=== PATIENT | female | born 1950 | race Caucasian/White ===

== ENCOUNTER → 2016-10-13 | Outpatient (CLI) | payer OTHER, BC ==
[~2016-10-13] MED LIST: ACET-176; ANSHCCR/; ASPI81TA28 PO; BUPRTAB51 PO; HYZ/10015 PO; LEVO100T7 PO; LEVOPOW36 PO; LORA10TA5 PO; NITR0.4S UT; POTA-327 PO; POTA-74 PO; PRLSR20 PO
[2016-10-13 13:25] LABS: POTASSIUM 3.5 mmol/L (3.5-5.1)
[2016-10-13 13:40] LABS: THYROID STIMULATING HORMONE 0.345 uIu/ml (0.300-4.500)
== END | disposition home or self-care (01) ==
LOC: C.LABMFLN 08:00
PROVIDERS: ATTEND Family Medicine
DX: E03.9 Hypothyroidism, unspecified (principal); E87.6 Hypokalemia

== ENCOUNTER → 2017-03-01 | Outpatient (CLI) | payer OTHER, BC ==
[2017-03-01 18:27] LABS: BLOOD UREA NITROGEN 17 mg/dl (7-18); BUN/CREATININE RATIO 23.6 (10-20); CARBON DIOXIDE 32 mmol/L (21-32); CHLORIDE 107 mmol/L (98-107); GLUCOSE 94 mg/dl (70-99); MAGNESIUM 2.1 mg/dl (1.8-2.4); POTASSIUM 3.6 mmol/L (3.5-5.1); SODIUM 144 mmol/L (136-145)
[2017-03-01 18:38] LABS: ALT/SGPT 24 U/L (12-78); AST/SGOT 19 U/L (15-37); CHOLESTEROL 233 mg/dl (0-200); CHOLESTEROL/HDL RATIO 5.7; HDL CHOLESTEROL 41 mg/dl; LDL CHOLESTEROL CALCULATED 152 mg/dl; THYROID STIMULATING HORMONE 0.231 uIu/ml (0.300-4.500); TRIGLYCERIDES 202 mg/dl (0-150); VERY LOW DENSITY LIPOPROT CALC 40 mg/dl
[2017-03-01 18:45] LABS: BASO % 0.5 %; BASO ABS # 0.03 K/uL (0-0.2); COMPLETE YES; EOS % 1.4 %; HEMATOCRIT 41.3 % (37-47); IG% 0.3 %; LYMPH % 28.1 %; LYMPH ABS # 1.84 K/uL (1.2-3.4); MEAN CELL VOLUME 84.3 fL (80-100); MEAN CORPUSCULAR HEMOGLOBIN 28.2 pg (25-34); MEAN CORPUSCULAR HGB CONC 33.4 g/dl (32-36); MEAN PLATELET VOLUME 10.4 fL (7.4-10.4); MONO % 8.6 %; NEUT % 61.1 %; PLATELET COUNT 262 K/uL (130-400); WHITE BLOOD COUNT 6.54 K/uL (4.8-10.8)
== END | disposition home or self-care (01) ==
LOC: C.LABMFLN 11:52
PROVIDERS: ATTEND Family Medicine
DX: I10 Essential (primary) hypertension (principal); E78.00 Pure hypercholesterolemia, unspecified; E03.9 Hypothyroidism, unspecified; G25.81 Restless legs syndrome

== ENCOUNTER 2017-04-03 11:57 | Emergency (ER) | payer OTHER, BC ==
[~2017-04-03] VITALS: Ht 160 cm; Wt 86.0 kg
[~2017-04-03 11:57] MED LIST changes: -LEVO100T7 PO; -POTA-74 PO
[2017-04-03 12:06] VITALS: TEMP 37.3; Ht 160 cm; Wt 86.0 kg
[2017-04-03] MEDS ORDERED: KETOROLAC TROMETHAMINE 30 MG/ML VIAL IV STA (12:40)
[2017-04-03] MEDS ORDERED: POTA-74 PO (13:07)
[2017-04-03] MEDS ORDERED: LEVO100T7 PO (13:07)
--- NOTE | 2017-04-03 13:28 | DIAGNOSTIC IMAGING REPORT ---
LUMBAR SPINE 5 VIEWS CLINICAL HISTORY: Fall with low back pain. FINDINGS: 5 views of the lumbar spine are obtained. No prior studies are available for comparison at the time of dictation. The skeletal structures are osteopenic. There is no radiographic evidence of fracture or malalignment. Vertebral body height and alignment are maintained throughout the lumbar spine. Small anterior osteophytes are seen throughout. The transverse and spinous processes appear intact. There is no evidence of spondylolysis on the oblique views. Facet arthropathy is seen in the lower lumbar region. Mild to moderate disc space narrowing is seen at L5-S1. The remaining disc spaces appear preserved. Degenerative endplate sclerosis is seen at L1-L2 and L5-S1. The visualized bony pelvis appears intact. Sclerotic degenerative change is noted at the sacroiliac joints. There is atherosclerotic calcification of the abdominal aorta. A nonobstructed bowel gas pattern is noted. IMPRESSION: 1. No acute bony abnormality is seen involving the lumbosacral spine. 2. Osteopenia and mild spondylotic change as above. Dictated: 04/03/2017 1:00 PM Transcribed: 04/03/2017 1:28 PM [email or web address] Electronically signed by: Randy Denney M.D. 04/03/2017 1:42 PM Dictated Date/Time: 04/03/2017 1:00 PM
--- NOTE | 2017-04-03 13:36 | EMERGENCY ROOM VISIT NOTE ---
ED Visit Note First contact with patient: 12:17 I have personally seen and evaluated the patient with the physician shop assistant. I agree with the diagnostic/management decisions and have personally been involved in these decisions and agree with the diagnosis.
[2017-04-03 13:56] VITALS: BP 128/71; PULSE 75; O2SAT 94
--- NOTE | 2017-04-12 17:30 | EMERGENCY ROOM VISIT NOTE ---
ED Visit Note First contact with patient: 12:17 CHIEF COMPLAINT: Low back pain HISTORY OF PRESENT ILLNESS: This 66-year-old white female patient complains of pain in the low back which began right after falling and landing on her back. She was attempting to sit at a picnic table and lost her balance while sitting. She fell off from a bench height and landed flat on her back. She denies any loss of consciousness. She denies any head pain. She does not believe she struck her head. She denies any neck pain. She arrives by [facility] ambulance. She was unable to ambulate after falling, secondary to pain. It is constant and worse with movement of the torso. There is no arm or leg numbness or weakness. There has been no vomiting or abdominal pain. He has a history of previous lumbar laminectomy 4 years ago as concerned that she did something to it. No radiating pain. Her accompanies her today. REVIEW OF SYSTEMS: No significant prior back problems. No dizziness, chest pain, or faintness before the fall. No injuries to the head or extremeties. PMH: Significant for hypertension, back pain, hypothyroidism Previous surgeries: Significant for lumbar laminectomy. Current medications: Reviewed and filed in patient's chart Allergies: Lisinopril, metoprolol, prednisone, milk Family history: Noncontributory. SOCIAL HISTORY: Patient lives at home. . No tobacco use. PHYSICAL EXAM: Vital Signs: Reviewed Nurse's notes and filed in chart. MENTAL STATUS: Alert and cooperative. Laying on a bed. Skin:Warm and dry with good turgor. No rashes or lesions. No ecchymosis or erythema. The patient is not diaphoretic. No abrasions. Surgical scar present in her lumbar spine. NECK: Supple, non-tender. Full range of motion of the neck. HEART: Regular rate and rhythm without murmurs, ectopy, gallops, or rubs. LUNGS: Clear to auscultation and breath sounds equal, no wheezes, rales, or rhonchi. Musculoskeletal: There is tenderness in the paraspinous muscles in the lumbar area. No tenderness over the spinous processes of the lumbar vertebrae. No ecchymoses seen. Mild discomfort with palpation over the SI joints bilaterally. No pain with palpation into the buttocks. No pain with palpation over the thoracic spine or cervical spine. Full range of motion of the neck. Intact motor function to the upper and lower extremities. Data: EMERGENCY DEPARTMENT COURSE: X-rays of the lumbar spine were read by radiology. . No acute bony abnormality is seen involving the lumbosacral spine. Osteopenia and mild spondylotic change are present. DIAGNOSIS: Lumbar back contusion DISCHARGE INSTRUCTIONS & TREATMENT: Patient was educated regarding today's findings. Conservative care measures were discussed. IV was established. She was given Toradol 30 mg IV with improvement in her pain. It was 1/10 at discharge. Rest for 3 days. Apply ice intermittently 3 days, and then use moist heat. Tylenol and Motrin every 6 hours as needed for discomfort. Gentle stretching daily. Return to the ED for any acute worsening of symptoms or loss of bowel or bladder control. See Dr. Alexis, her surgeon, in 3 to 4 days if she is not improved. He was reassured that I do not suspect fracture, subluxation, nerve root impingement, or cauda equina. Patient was seen in conjunction with Dr. Lockett, who also evaluated the patient and concurred with today's diagnosis and treatment plan. Current/Historical Medications Scheduled Aspirin (Aspirin Ec), 81 MG PO DAILY Hctz/Losartan (Hyzaar 25MG/100MG), 1 TAB PO QAM Levothyroxine Sodium (Levothyroxine Sodium), 1 TAB PO DAILYBB Loratadine (Claritin), 10 MG PO HS Nitroglycerin (Nitrostat), 0.4 MG UT PRN Omeprazole (Prilosec), 20 MG PO DAILY Potassium Chloride (Potassium Chloride Er), PO BID Scheduled PRN Acetaminophen (Apap Extra Strength), 2 TABS for Pain Allergies Coded Allergies: Milk (Verified Allergy, Unknown, unknown, 04/03/17) Lisinopril (Verified Adverse Reaction, Mild, cough, 04/03/17) Metoprolol (Verified Adverse Reaction, Mild, cough, 04/03/17) Prednisone (Verified Adverse Reaction, Unknown, depression, 04/03/17) Vital Signs Date Time Temp Pulse Resp B/P (MAP) Pulse Ox O2 Delivery O2 Flow Rate FiO2 04/03/17 13:56 75 20 128/71 94 04/03/17 12:58 83 20 135/79 95 Room Air 04/03/17 12:06 37.3 81 18 149/80 99 Room Air Medications Administered Medications (Trade) Dose Ordered Sig/Beckie Route Start Time Stop Time Status Last Admin Dose Admin Ketorolac Tromethamine (Toradol Inj) 30 mg NOW STAT IV 04/03/17 12:40 04/03/17 12:43 DC 04/03/17 13:36 30 MG Departure Information Impression Primary Impression: Contusion of back Dispostion Home / Self-Care Condition GOOD Forms HOME CARE DOCUMENTATION FORM, MOTRIN USE, TYLENOL USE, IMPORTANT VISIT INFORMATION Patient Instructions My [facility] Additional Instructions Ice intermittently 3 days, then use moist heat Gentle stretching daily Tylenol and Motrin every 6 hours as needed for discomfort Avoid any heavy lifting until symptoms fully resolved Follow-up with Dr. Alexis if symptoms are persisting into Tuesday, and not improving Return to the ED for any acute changes or inability to void
== END 2017-04-03 13:59 | disposition home or self-care (01) ==
LOC: EDBD 11:57 → C.EDB 11:58
DX: S30.0XXA Contusion of lower back and pelvis, initial encounter (principal); W08.XXXA Fall from other furniture, initial encounter; I10 Essential (primary) hypertension; E03.9 Hypothyroidism, unspecified; M85.88 Other specified disorders of bone density and structure, other site; Z12.82 Encounter for screening for malignant neoplasm of nervous system

== ENCOUNTER → 2017-09-27 | Outpatient (CLI) | payer OTHER, BC ==
[~2017-09-27] MED LIST changes: -ANSHCCR/; -BUPRTAB51 PO; +LEVO100T7 PO; -LEVOPOW36 PO; -LORA10TA5 PO; +LORA10TA6 PO; -POTA-327 PO; +POTA-74 PO
== END | disposition home or self-care (01) ==
LOC: C.LABMFLN 15:12
PROVIDERS: ATTEND Family Medicine
DX: E03.9 Hypothyroidism, unspecified (principal)

== ENCOUNTER → 2018-04-06 | Outpatient (CLI) | payer OTHER, BC ==
[2018-04-06 18:11] LABS: ALBUMIN 3.7 gm/dl (3.4-5.0); ALKALINE PHOSPHATASE 106 U/L (45-117); ALT/SGPT 23 U/L (12-78); AST/SGOT 18 U/L (15-37); BLOOD UREA NITROGEN 19 mg/dl (7-18); CALCIUM 8.8 mg/dl (8.5-10.1); CARBON DIOXIDE 29 mmol/L (21-32); CHOLESTEROL 252 mg/dl (0-200); CREATININE 0.83 mg/dl (0.60-1.20); GLUCOSE 107 mg/dl (70-99); LDL CHOLESTEROL CALCULATED 154 mg/dl; POTASSIUM 3.6 mmol/L (3.5-5.1); SODIUM 141 mmol/L (136-145); TOTAL PROTEIN 7.1 gm/dl (6.4-8.2)
== END | disposition home or self-care (01) ==
LOC: C.LABMFLN 15:29
PROVIDERS: ATTEND Family Medicine
DX: E78.00 Pure hypercholesterolemia, unspecified (principal); E03.9 Hypothyroidism, unspecified; I25.10 Atherosclerotic heart disease of native coronary artery without angina pectoris

== ENCOUNTER 2020-05-30 17:23 | Inpatient (IN) ==
[2020-05-30] MEDS ORDERED: SODIUM CHLORIDE 0.9% 1000ML 1,000 ML IV ONE ×2 (18:01→20:22)
--- NOTE | 2020-05-30 18:09 | Emergency Department Note ---
Impression & Plan Weakness, Fever, Acute dehydration, Acute kidney injury ED Provider Note NAME: PREMA SEAMAN AGE: 69 SEX: F : 1950 ARRIVES VIA: Walk-In INFORMANT: Patient, ED PROVIDER(S): Baron Bonds DO CHIEF COMPLAINT: Cough HPI: The patient is a 69-year-old female who presented to the emergency department for an evaluation of cough. The patient's been having problems with malaise cough and fever over the last 8 to 9 days. She states her symptoms are intermittent. She states her symptoms initially were evaluated by her primary care physician. She had a Covid swab which was negative. She was seen again by her primary care physician recently and had a chest x-ray for ongoing symptoms. This was reportedly negative. The patient describes generalized weakness as well as changes in her taste. She also denies having any headache. She denies having any abdominal pain or chest pain. She states he has no significant diffi culty breathing but does notice a cough with exertion. She has no lower extremity swelling or pain. She does not remember any tick borne illness in the past or recent tick bites or rashes. Her had similar symptoms initially but has since gotten better. She denies having any unilateral weakness but does complain of generalized weakness. She is not recently taken any medication for fever. She was noted to have low blood pressure by her primary care physician and was referred to the emergency department for further evaluation. ROS: See above HPI for pertinent positives & negatives. A total of 10 systems reviewed and were otherwise negative. PAST MEDICAL HISTORY: See Below PAST SURGICAL HISTORY: See Below FAMILY HISTORY: See Below SOCIAL HISTORY: See Below HOME MEDICATIONS: See Below ALLERGIES: See Below VITALS: See Below PHYSICAL EXAMINATION: GENERAL: The patient is awake and alert. She is somewhat listless appearing but does not appear to be uncomfortable. EYES: The conjunctivae are clear. The pupils are round and reactive. EARS, NOSE, MOUTH AND THROAT: The nose is without any evidence of any deformity. Mucous membranes are moist. NECK: The neck is nontender and supple. RESPIRATORY: Normal respiratory effort is noted there is no evidence of wheezing rhonchi or rales CARDIOVASCULAR: Regular rate and rhythm noted there no murmurs rubs or gallops normal S1 normal S2. GASTROINTESTINAL: The abdomen is soft. Abdomen is nontender. MUSCULOSKELETAL/EXTREMITIES: There is no evidence of gross deformity full range of motion is noted in the hips and shoulders. SKIN: There is no obvious evidence of any rash. There are no petechiae, pallor or cyanosis noted. NEUROLOGIC: Patient is awake alert and oriented x3 strength is symmetric patell ar reflexes are 2+ bilaterally MEDICAL DECISION MAKING: The patient is a 69-year-old female who presented to the emergency department for an evaluation of generalized weakness and fever. The patient was seen by her primary care physician then referred to the emergency department. He was concerned that she may have COVID-19. She was tested previously for COVID-19 and it was negative. The patient was treated with IV fluids in the emergency department. She was reevaluated multiple times. Her blood pressure did improve with this modality. She was found to have elevated white blood cell count as well as signs of elevation in her creatinine. This could be secondary to dehydration. CT did not reveal any acute process. She refused chest x-ray in the emergency department but 1 done earlier was reviewed. I discussed the patient's laboratory and radiographic studies with her. I also discussed her case with the on-call [facility] hospitalist. They have agreed to evaluate the patient in the emergency department for further management and disposition. Triage Nursing notes reviewed. Prior medical records reviewed Vital Signs: reviewed and remarkable for initial hypotension Differential diagnosis: Infection, dehydration, metabolic abnormality, hypo/hyperglycemia, electrolyte disturbance, anemia, hypoxia, cardiac sources, intracerebral event, toxicologic, neurologic, as well as other pathologies. ER treatment provided: See below Diagnostics interpreted by me: ECG: EKG was obtained in the emergency department. My interpretation is normal sinus rhythm at 83 bpm. There is no ectopy. Low lateral ST depressions were noted. Poor R wave progression was also noted. This was compared to a tracing from May 122014. No significant changes were noted. Cardiac Monitoring: An order was placed for continuous cardiac monitoring. The monitor shows a rate of 85 bpm with sinus rhythm. Laboratory studies: As stated above and show below. Imaging studies: See below, the patient refused chest x-ray in the emergency department. I was able to obtain the report from the chest x-ray that was done today at [facility]. The impression is stable radiographic appearance of the chest without focal parenchymal consolidation. Consultation(s): 3160: I discussed this case with Dr. Ashraf. Past Med/Surg History Medical History Angina pectoris Arteriosclerosis of coronary artery Atopic dermatitis Benign essential hypertension Contact with and (suspected) exposure to other viral communicable diseases Contusion of back Cough GERD without esophagitis Hypercholesterolemia Hypothyroidism Inflamed seborrheic keratosis Left-sided tinnitus Lung nodule Medicare annual wellness visit, subsequent Otalgia, left ear Restless leg syndrome Seborrheic dermatitis Tinnitus, bilateral TMJ tenderness, left Trigeminal neuralgia Vertigo Wheezing Surgical History H/O foot surgery History of cardiac cath History of colonoscopy History of coronary artery stent placement History of hysterectomy History of laminectomy History of salpingo-oophorectomy Family History Daughter Depression Hypertension Polycystic ovarian syndrome Heart murmur Other Adopted Social History Smoking Status: Never smoker Second Hand Exposure: No; Hx Alcohol Use: Yes Alcohol type: wine Alcohol Intake Frequency Comment: 1 drink a week Hx Substance Use: No Preferred Language: Azeri Visual Impairment: No Limitations Hearing Ability: Normal marital status: Current Living Situation: Spouse current occupational status: retired Feels Safe at Home: Yes Childhood Exposure to Second-Hand Smoke: Yes caffeine: Yes Dental Care, Regularly: Yes Physical Activity Frequency: 3-4 Times per Week Physical Activity Frequency Comment: walking Seatbelt Use: always Sunscreen Use: Yes Allergies Allergies Allergy/AdvReac Type Severity Reaction Status Date / Time milk Allergy Unknown unknown Verified 05/30/20 15:51 lisinopril AdvReac Mild cough Verified 05/30/20 15:51 metoprolol AdvReac Mild cough Verified 05/30/20 15:51 prednisone AdvReac Unknown depression Verified 05/30/20 15:51 Home Meds Home Medications Medication Instructions Recorded Confirmed aspirin 81 mg tablet 81 mg PO DAILY tab 03/19/19 05/30/20 carbamazepine 200 mg tablet 200 mg PO BID tab 05/20/20 05/30/20 Previous Rx's Medication Instructions Recorded acetaminophen 325 mg tablet 650 mg PO Q4H PRN #90 tab 07/17/19 isosorbide mononitrate 30 mg 30 mg PO DAILY #90 tab 07/17/19 tablet,extended release 24 hr levothyroxine 100 mcg tablet 100 mcg PO DAILY #90 tab 07/17/19 losartan 100 1 tab PO DAILY #90 tab 07/17/19 mg-hydrochlorothiazide 25 mg tablet nitroglycerin 0.4 mg sublingual 0.4 mg SL Q5M #25 tab 07/17/19 tablet omeprazole 20 mg capsule,delayed 20 mg PO DAILY #90 cap 07/17/19 release potassium chloride 10 mEq 10 meq PO TID #270 tab 07/17/19 tablet,extended release rosuvastatin 5 mg tablet 5 mg PO DAILY #90 tab 07/17/19 hydrocortisone 2.5 % topical cream 1 appln TOP BID PRN #30 gm 10/02/19 ezetimibe 10 mg tablet 10 mg PO HS #30 tab 05/20/20 Results & Data (ED) Vital Signs Vital Signs - 24 hr 05/30/20 17:37 05/30/20 18:01 05/30/20 18:31 Pulse Rate 87 Pulse Rate [Right] Pulse Rhythm [Right] Pulse Strength [Right] Respiratory Rate 18 Respiratory Effort / Characteristics Non-Labored Spontaneous Short of Breath Respiratory Depth Normal Blood Pressure 94/63 L Blood Pressure [Right Arm] Blood Pressure Mean 73 Blood Pressure Mean [Right Arm] Blood Pressure Position Sitting Blood Pressure Position [Right Arm] Pulse Oximetry 98 94 94 Oxygen Delivery Method Room Air Room Air Room Air Sepsis Recent Fever Within 48 Hours Yes Sepsis New/Unexplained Change in Mental Status No Sepsis Action Taken by Nursing No Action Required 05/30/20 19:55 05/30/20 21:29 Pulse Rate Pulse Rate [Right] 77 84 Pulse Rhythm [Right] Regular Regular Pulse Strength [Right] Normal Normal Respiratory Rate 18 16 Respiratory Effort / Characteristics Non-Labored Spontaneous Non-Labored Spontaneous Respiratory Depth Normal Normal Blood Pressure Blood Pressure [Right Arm] 95/59 L 122/72 Blood Pressure Mean Blood Pressure Mean [Right Arm] 71 88 Blood Pressure Position Blood Pressure Position [Right Arm] Lying Pulse Oximetry 93 98 Oxygen Delivery Method Room Air Room Air Sepsis Recent Fever Within 48 Hours Sepsis New/Unexplained Change in Mental Status Sepsis Action Taken by Prison Medications Current Medication List: was personally reviewed by me Laboratory Data Attestation: I reviewed the patient's lab results. Result diagrams: 05/30/20 18:42 05/30/20 18:42 Lab Results 05/30/20 05/30/20 05/30/20 Range/Units 18:42 18:42 18:42 WBC 8.12 (4.8-10.8) K/uL RBC 4.42 (4.2-5.4) M/uL Hgb 12.6 (12.0-16.0) g/dL Hct 37.1 (37-47) % MCV 83.9 (80-100) fL MCH 28.5 (25-34) pg MCHC 34.0 (32-36) g/dL RDW Std Deviation 41.9 (36.4-46.3) fL RDW Coeff of Charles 13.7 (11.5-14.5) % Plt Count 222 (130-400) K/uL MPV 9.7 (7.4-10.4) fL Immature Gran % (Auto) 0.7 % Neut % (Auto) 79.2 % Lymph % (Auto) 11.1 % Peach % (Auto) 6.3 % Eos % (Auto) 2.3 % Baso % (Auto) 0.4 % Neut # (Auto) 6.43 (1.4-6.5) K/uL Lymph # (Auto) 0.90 L (1.2-3.4) K/uL Peach # (Auto) 0.51 (0.11-0.59) K/uL Eos # (Auto) 0.19 (0-0.5) K/uL Baso # (Auto) 0.03 (0-0.2) K/uL Immature Gran # (Auto) 0.06 H (0.00-0.02) K/uL Toxic Vacuolation 1+ PT 11.2 (9.0-12.0) Seconds INR 1.1 (0.9-1.1) APTT 27.2 (21.0-31.0) Seconds PTT Ratio 1.0 Sodium (136-145) mmol/L Potassium (3.5-5.1) mmol/L Chloride (98-107) mmol/L Carbon Dioxide (21-32) mmol/L Anion Gap (3-11) BUN (7-18) mg/dl Creatinine (0.6-1.2) mg/dl Est Cr Clr Drug Dosing Est GFR ( Amer) Est GFR (Non-Af Amer) BUN/Creatinine Ratio (10-20) Glucose (70-99) mg/dl Lactate (0.4-2.0) mmol/L Calcium (8.5-10.1) mg/dl Magnesium (1.8-2.4) mg/dl Total Bilirubin (0.2-1) mg/dl AST (15-37) U/L ALT (12-78) U/L Alkaline Phosphatase (45-117) U/L Troponin I (0-0.045) ng/ml Total Protein (6.4-8.2) gm/dl Albumin (3.4-5.0) gm/dl Globulin (2.5-4.0) gm/dl Albumin/Globulin Ratio (0.9-2) Procalcitonin (0-0.5) ng/ml Anaplasma Smear See Comment Lyme Disease IgG Ab Negative (Negative) Lyme Disease IgM Ab Negative (Negative) COVID-19 Eval Order COVID-19 PCR (Negative) 05/30/20 05/30/20 05/30/20 Range/Units 18:42 18:42 18:42 WBC (4.8-10.8) K/uL RBC (4.2-5.4) M/uL Hgb (12.0-16.0) g/dL Hct (37-47) % MCV (80-100) fL MCH (25-34) pg MCHC (32-36) g/dL RDW Std Deviation (36.4-46.3) fL RDW Coeff of Charles (11.5-14.5) % Plt Count (130-400) K/uL MPV (7.4-10.4) fL Immature Gran % (Auto) % Neut % (Auto) % Lymph % (Auto) % Peach % (Auto) % Eos % (Auto) % Baso % (Auto) % Neut # (Auto) (1.4-6.5) K/uL Lymph # (Auto) (1.2-3.4) K/uL Peach # (Auto) (0.11-0.59) K/uL Eos # (Auto) (0-0.5) K/uL Baso # (Auto) (0-0.2) K/uL Immature Gran # (Auto) (0.00-0.02) K/uL Toxic Vacuolation PT (9.0-12.0) Seconds INR (0.9-1.1) APTT (21.0-31.0) Seconds PTT Ratio Sodium 134 L (136-145) mmol/L Potassium 3.8 (3.5-5.1) mmol/L Chloride 103 (98-107) mmol/L Carbon Dioxide 22 (21-32) mmol/L Anion Gap 9.0 (3-11) BUN 31 H (7-18) mg/dl Creatinine 2.10 H (0.6-1.2) mg/dl Est Cr Clr Drug Dosing Not Reportable Est GFR ( Amer) 27.1 Est GFR (Non-Af Amer) 23.4 BUN/Creatinine Ratio 14.5 (10-20) Glucose 106 H (70-99) mg/dl Lactate 0.8 (0.4-2.0) mmol/L Calcium 8.8 (8.5-10.1) mg/dl Magnesium 2.7 H (1.8-2.4) mg/dl Total Bilirubin 0.5 (0.2-1) mg/dl AST 83 H (15-37) U/L ALT 145 H (12-78) U/L Alkaline Phosphatase 303 H (45-117) U/L Troponin I < 0.015 (0-0.045) ng/ml Total Protein 7.5 (6.4-8.2) gm/dl Albumin 2.9 L (3.4-5.0) gm/dl Globulin 4.6 H (2.5-4.0) gm/dl Albumin/Globulin Ratio 0.6 L (0.9-2) Procalcitonin 0.66 H (0-0.5) ng/ml Anaplasma Smear Lyme Disease IgG Ab (Negative) Lyme Disease IgM Ab (Negative) COVID-19 Eval Order COVID-19 PCR (Negative) 05/30/20 05/30/20 Range/Units 18:55 18:55 WBC (4.8-10.8) K/uL RBC (4.2-5.4) M/uL Hgb (12.0-16.0) g/dL Hct (37-47) % MCV (80-100) fL MCH (25-34) pg MCHC (32-36) g/dL RDW Std Deviation (36.4-46.3) fL RDW Coeff of Charles (11.5-14.5) % Plt Count (130-400) K/uL MPV (7.4-10.4) fL Immature Gran % (Auto) % Neut % (Auto) % Lymph % (Auto) % Peach % (Auto) % Eos % (Auto) % Baso % (Auto) % Neut # (Auto) (1.4-6.5) K/uL Lymph # (Auto) (1.2-3.4) K/uL Peach # (Auto) (0.11-0.59) K/uL Eos # (Auto) (0-0.5) K/uL Baso # (Auto) (0-0.2) K/uL Immature Gran # (Auto) (0.00-0.02) K/uL Toxic Vacuolation PT (9.0-12.0) Seconds INR (0.9-1.1) APTT (21.0-31.0) Seconds PTT Ratio Sodium (136-145) mmol/L Potassium (3.5-5.1) mmol/L Chloride (98-107) mmol/L Carbon Dioxide (21-32) mmol/L Anion Gap (3-11) BUN (7-18) mg/dl Creatinine (0.6-1.2) mg/dl Est Cr Clr Drug Dosing Est GFR ( Amer) Est GFR (Non-Af Amer) BUN/Creatinine Ratio (10-20) Glucose (70-99) mg/dl Lactate (0.4-2.0) mmol/L Calcium (8.5-10.1) mg/dl Magnesium (1.8-2.4) mg/dl Total Bilirubin (0.2-1) mg/dl AST (15-37) U/L ALT (12-78) U/L Alkaline Phosphatase (45-117) U/L Troponin I (0-0.045) ng/ml Total Protein (6.4-8.2) gm/dl Albumin (3.4-5.0) gm/dl Globulin (2.5-4.0) gm/dl Albumin/Globulin Ratio (0.9-2) Procalcitonin (0-0.5) ng/ml Anaplasma Smear Lyme Disease IgG Ab (Negative) Lyme Disease IgM Ab (Negative) COVID-19 Eval Order Covid19 Done at [facility] COVID-19 PCR NEGATIVE (Negative) Administered Medications Discontinued Medications Sodium Chloride (Nss 1000ml) 1,000 mls @ 999 mls/hr IV .Q1H1M ONE Stop: 05/30/20 19:01 Last Infusion: 05/30/20 20:07 Dose: 0 mls/hr Documented by: [id number] Admin: 05/30/20 19:05 Dose: 999 mls/hr Documented by: [id number] Sodium Chloride (Nss 1000ml) 1,000 mls @ 999 mls/hr IV .Q1H1M ONE Stop: 05/30/20 21:22 Last Infusion: 05/30/20 21:56 Dose: 0 mls/hr Documented by: [id number] Admin: 05/30/20 20:53 Dose: 999 mls/hr Documented by: [id number] Imaging Data Radiologist's Impression: Patient: PREMA SEAMAN Admit Date: 05/30/20 MR#: [id number] Address1: [address] [place] [address] Acct ID:[id number] Address2: Date: 1950 [facility] Zip: [place] [address] Age: 69 Location: ED Sex: F Room/Bed: Att Phy: Diagnosis: DEHYDRATED Shy Phy: Randy Amin MD Service Date: 05/30/20 [facility] Phy: Randy Amin MD Interpreting Phy: Randy Denney MD Admit Phy: Ordering Phy: Baron Bonds DO cc: ~ CT SCAN OF THE ABDOMEN AND PELVIS WITHOUT IV CONTRAST CLINICAL HISTORY: Renal insufficiency. COMPARISON STUDY: Radiographs of lumbar spine dated 04/03/2017. TECHNIQUE: CT scan of the abdomen and pelvis is performed from the lung bases to the proximal femora. Images are reviewed in the axial, sagittal, and coronal planes. IV contrast was not administered for this examination. A dose lowering technique was utilized adhering to the principles of ALARA. The examination is degraded by motion artifact. CT DOSE: 652.33 mGy.cm FINDINGS: Lung bases: The heart is normal in size noting a small pericardial effusion. The coronary arteries are densely calcified. There is diminished attenuation of the cardiac blood pool as compared to the myocardium suggesting anemia. There are trace pleural effusions with dependent atelectasis. No airspace consolidation is seen typical for pneumonia. Liver: The unenhanced liver is normal in size, contour, and attenuation. There is no intrahepatic biliary ductal dilatation. Coarse calcifications are noted in the right lobe. Gallbladder: Unremarkable. Spleen: Normal in size and attenuation. Pancreas: Unremarkable. Adrenal glands: Unremarkable. Kidneys: The unenhanced kidneys are normal in size and without hydronephrosis. There are no renal calculi identified. There is no evidence of contour deforming renal mass lesion. Abdominal vasculature: The abdominal aorta is normal in course and caliber noting moderate to advanced atherosclerotic calcification. Bowel: There is advanced colonic diverticulosis without CT evidence of acute diverticulitis. No bowel obstruction is seen. The appendix is well-visualized and normal. Peritoneum: There is no intraperitoneal free air or abdominal ascites. Lymphadenopathy: None. Pelvic viscera: The bladder is distended but otherwise normal in appearance. The uterus is surgically absent. No adnexal lesion is seen. Skeletal structures: The skeletal structures are osteopenic. There is [id number] lumbosacral spondylosis. No lytic or blastic lesions are seen. IMPRESSION: 1. There are no acute infectious or inflammatory findings in the abdomen or pelvis. 2. Advanced colonic diverticulosis without CT evidence of acute diverticulitis. 3. Trace pleural effusions. 4. Advanced coronary artery calcification. 5. Additional findings as above. ACT 112: Negative or not required by law. Electronically signed by: Randy Denney M.D. 05/30/2020 9:49 PM Dictated: 05/30/202142 Transcribed: 05/30/202142 Blood Pressure Blood Pressure Findings: Low blood pressure Discharge Plan Visit Data Chief Complaint: Dehydration Stated Complaint: DEHYDRATED ED Provider: Baron Bonds Discharge Problem: Weakness, Fever, Acute dehydration, Acute kidney injury Patient Disposition: Being Evaluated by Hospitalist Condition: Good Forms Stand Alone Forms: My [employer] Prescriptions Prescriptions: No Action acetaminophen 325 mg tablet 650 mg PO Q4H PRN (Reason: pain) Qty: 90 RF: 3 isosorbide mononitrate 30 mg tablet extended release 24 hr 30 mg PO DAILY Qty: 90 RF: 3 levothyroxine 100 mcg tablet 100 mcg PO DAILY Qty: 90 RF: 3 losartan-hydrochlorothiazide 100-25 mg tablet 1 tab PO DAILY Qty: 90 RF: 3 nitroglycerin 0.4 mg tablet, sublingual 0.4 mg SL Q5M Qty: 25 RF: 0 omeprazole 20 mg capsule,delayed release(DR/EC) 20 mg PO DAILY Qty: 90 RF: 3 potassium chloride 10 mEq tablet extended release 10 meq PO TID Qty: 270 RF: 3 rosuvastatin 5 mg tablet 5 mg PO DAILY Qty: 90 RF: 3 aspirin 81 mg tablet 81 mg PO DAILY RF: 0 hydrocortisone 2.5 % cream 1 appln TOP BID PRN (Reason: skin irritation) Qty: 30 RF: 11 carbamazepine [Tegretol] 200 mg tablet 200 mg PO BID RF: 0 ezetimibe [Zetia] 10 mg tablet 10 mg PO HS Qty: 30 RF: 2 Referrals Referrals: Randy Amin MD [Primary Care Provider] - Discharge Problem: Fever Qualifiers: Fever type: unspecified Qualified Code(s): R50.9 - Fever, unspecified
[2020-05-30 19:03] LABS: Basophils # (auto) 0.03 K/uL (0-0.2); Basophils % (auto) 0.4 %; Eosinophils # (auto) 0.19 K/uL (0-0.5); Eosinophils % (auto) 2.3 %; Hematocrit (blood only) 37.1 % (37-47); Hemoglobin 12.6 g/dL (12.0-16.0); Immature Granulocytes # (auto) 0.06 K/uL (0.00-0.02); Immature Granulocytes % (auto) 0.7 %; Lymphocytes % (auto) 11.1 %; Mean Corpuscular Hemoglobin 28.5 pg (25-34); Mean Corpuscular Volume 83.9 fL (80-100); Mean Platelet Volume 9.7 fL (7.4-10.4); Monocytes # (auto) 0.51 K/uL (0.11-0.59); Monocytes % (auto) 6.3 %; Neutrophils # (auto) 6.43 K/uL (1.4-6.5); Neutrophils % (auto) 79.2 %; Platelet Count 222 K/uL (130-400); RDW Coefficient of Variation 13.7 % (11.5-14.5); RDW Standard Deviation 41.9 fL (36.4-46.3); Red Blood Count 4.42 M/uL (4.2-5.4); White Blood Count 8.12 K/uL (4.8-10.8)
[2020-05-30 19:16] LABS: INR 1.1 (0.9-1.1); Partial Thromboplastin Time 27.2 Seconds (21.0-31.0); Prothrombin Time 11.2 Seconds (9.0-12.0)
[2020-05-30 19:21] LABS: Alanine Aminotransferase 145 U/L (12-78); Albumin Level 2.9 gm/dl (3.4-5.0); Aspartate Aminotransferase 83 U/L (15-37); BUN Creatinine Ratio 14.5 (10-20); Blood Urea Nitrogen 31 mg/dl (7-18); Calcium 8.8 mg/dl (8.5-10.1); Carbon Dioxide 22 mmol/L (21-32); Chloride 103 mmol/L (98-107); Est GFR (African American) 27.1; Est GFR (Non-African American) 23.4; Glucose 106 mg/dl (70-99); Magnesium 2.7 mg/dl (1.8-2.4); Potassium 3.8 mmol/L (3.5-5.1); Sodium 134 mmol/L (136-145)
[2020-05-30 19:26] LABS: Albumin Globulin Ratio 0.6 (0.9-2); Alkaline Phosphatase 303 U/L (45-117); Bilirubin,Total 0.5 mg/dl (0.2-1); Globulin 4.6 gm/dl (2.5-4.0); Total Protein 7.5 gm/dl (6.4-8.2); Troponin I < 0.015 ng/ml (0-0.045)
[2020-05-30 19:39] LABS: Toxic Vacuolation 1+
[2020-05-30 20:05] LABS: Lyme Ab IgG w/WB Rflx Negative (Negative); Lyme Ab IgM w/WB Rflx Negative (Negative)
--- NOTE | 2020-05-30 21:50 | CT Scan Report ---
CT SCAN OF THE ABDOMEN AND PELVIS WITHOUT IV CONTRAST CLINICAL HISTORY: Renal insufficiency. COMPARISON STUDY: Radiographs of lumbar spine dated 04/03/2017. TECHNIQUE: CT scan of the abdomen and pelvis is performed from the lung bases to the proximal femora. Images are reviewed in the axial, sagittal, and coronal planes. IV contrast was not administered for this examination. A dose lowering technique was utilized adhering to the principles of ALARA. The ex amination is degraded by motion artifact. CT DOSE: 652.33 mGy.cm FINDINGS: Lung bases: The heart is normal in size noting a small pericardial effusion. The coronary arteries ar e densely calcified. There is diminished attenuation of the cardiac blood pool as compared to the bebeto cardium suggesting anemia. There are trace pleural effusions with dependent atelectasis. No airspace consolidation is seen typical for pneumonia. Liver: The unenhanced liver is normal in size, contour, and attenuation. There is no intrahepatic jaret iary ductal dilatation. Coarse calcifications are noted in the right lobe. Gallbladder: Unremarkable. Spleen: Normal in size and attenuation. Pancreas: Unremarkable. Adrenal glands: Unremarkable. Kidneys: The unenhanced kidneys are normal in size and without hydronephrosis. There are no renal al culi identified. There is no evidence of contour deforming renal mass lesion. Abdominal vasculature: The abdominal aorta is normal in course and caliber noting moderate to advance d atherosclerotic calcification. Bowel: There is advanced colonic diverticulosis without CT evidence of acute diverticulitis. No bowel obstruction is seen. The appendix is well-visualized and normal. Peritoneum: There is no intraperitoneal free air or abdominal ascites. Lymphadenopathy: None. Pelvic viscera: The bladder is distended but otherwise normal in appearance. The uterus is surgically absent. No adnexal lesion is seen. Skeletal structures: The skeletal structures are osteopenic. There is [id number] lumbosacral sp ondylosis. No lytic or blastic lesions are seen. IMPRESSION: 1. There are no acute infectious or inflammatory findings in the abdomen or pelvis. 2. Advanced colonic diverticulosis without CT evidence of acute diverticulitis. 3. Trace pleural effusions. 4. Advanced coronary artery calcification. 5. Additional findings as above. ACT 112: Negative or not required by law. Electronically signed by: Randy Denney M.D. 05/30/2020 9:49 PM
[2020-05-30 22:19] LABS: Influenza A virus by PCR Negative (Negative); Influenza B virus by PCR Negative (Negative)
--- NOTE | 2020-05-30 23:09 | History & Physical Report ---
Date of Service May 30, 2020 Assessment & Plan (1) Weakness: 69-year-old female with past medical history coronary artery disease, hypothyroidism, hyperlipidemia, hypertension, restless leg syndrome, GERD presents with concerns of fevers, malaise, dry cough, chills, sweats, headache, severe generalized weakness for past 8 to 9 days found to have ARELIS. Fevers/generalized weakness/malaise Likely viral in etiology COVID 19 negative x2, influenza A/B negative, Lyme negative, anaplasmosis smear negative, monoscreen negative EBV pending. 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 Consideration for PO on discharge PRN Tylenol for any fevers Continue supportive care otherwise ARELIS Creatinine 2.1 on admission. Baseline creatinine ~0.8 IVF with NSS@80 mls/hr Daily BMP Transaminitis AST 83, ALT 145 on admission. No history of such. Could be 2/2 multiple factors including viral as above and dehydration CT abdomen pelvis showing no acute infectious or inflammatory findings in the abdomen Repeat CMP in a.m. to trend LFTs. CK in am as well -Consideration for hepatitis panel/additional US imaging moving forward based on trend CAD/HLD/HTN Continue aspirin 81 mg, losartan/HCTZ 100/25 mg, rosuvastatin 5 mg as directed, Zetia 10 mg, isosorbide mononitrate ER 30 mg Hypothyroidism TSH WNL 0.452 May 2020 Continue levothyroxine 100 mcg GERD Continue omeprazole 20 mg FEN/GI: Heart healthy diet. NSS at 80 DVT prophylaxis: SCDs given anticipation of a short hospital stay CODE STATUS: DNI only Dispo: MedSurg History of Present Illness Chief Complaint: Generalized weakness Primary Care Provider: Randy Amin MD 69-year-old female with past medical history coronary artery disease, hypothyroidism, hyperlipidemia, hypertension, restless leg syndrome, GERD presents with concerns of sick symptoms that have been going on for 8 to 9 days. Patient has complaints of fevers as high as 103.9, malaise, dry cough, chills, sweats, headache, decreased appetite with an increased sense of taste, just overall severe generalized weakness. Patient notes that she has never had symptoms this severe ever before. Patient was seen by her PCP May 26, 2020 subsequently again today for these symptoms. Patient notes that PCP order COVID testing and a chest x-ray, which were both reportedly negative. Patient has tried guaifenesin and alternating Tylenol/ibuprofen, which has helped symptoms a little. Patient otherwise denies any vomiting, diarrhea, shortness of breath, chest pain, rhinorrhea, nasal congestion, urinary symptoms, recent travel anywhere. Patient notes she has a sick contact of her who was sick with similar symptoms starting around the same time, however he has since been resolved. Patient also knows that she received flu shot about 2 weeks ago. Patient with no other acute concerns or complaints. Pertinent labs: Sodium 134, BUN 31, creatinine 2.10, mag 2.7, AST 83, ALT 145, alk phos 303, albumin 2.9, pro-Josias 0.66. COVID 19 again negative, influenza A/B negative, Lyme negative, anaplasmosis smear negative Abdomen pelvis CT: There are no acute infectious or inflammatory findings in the abdomen or pelvis. Advanced colonic diverticulosis without CT evidence of acute diverticulitis. Trace pleural effusions. Advanced coronary artery calcification. ER course: NSS 2 L Allergies Allergy/AdvReac Type Severity Reaction Status Date / Time milk Allergy Unknown unknown Verified 05/30/20 15:51 lisinopril AdvReac Mild cough Verified 05/30/20 15:51 metoprolol AdvReac Mild cough Verified 05/30/20 15:51 prednisone AdvReac Unknown depression Verified 05/30/20 15:51 Home Medications Home Medications Medication Instructions Recorded Confirmed Type aspirin 81 mg tablet 81 mg PO DAILY tab 03/19/19 05/30/20 History isosorbide mononitrate 30 mg 30 mg PO DAILY #90 tab 07/17/19 05/30/20 Rx tablet,extended release 24 hr levothyroxine 100 mcg tablet 100 mcg PO DAILY #90 tab 07/17/19 05/30/20 Rx losartan 100 1 tab PO DAILY #90 tab 07/17/19 05/30/20 Rx mg-hydrochlorothiazide 25 mg tablet nitroglycerin 0.4 mg sublingual 0.4 mg SL Q5M #25 tab 07/17/19 05/30/20 Rx tablet omeprazole 20 mg capsule,delayed 20 mg PO DAILY #90 cap 07/17/19 05/30/20 Rx release hydrocortisone 2.5 % topical cream 1 appln TOP BID PRN #30 gm 02/18/20 10/16/20 Rx carbamazepine 200 mg tablet 200 mg PO HS tab 05/20/20 05/30/20 History ezetimibe 10 mg tablet 10 mg PO HS #30 tab 05/20/20 05/30/20 Rx acetaminophen [Tylenol Extra 1,000 mg PO Q8 PRN 05/30/20 05/30/20 History Strength] potassium chloride 10 meq PO HS 05/30/20 05/30/20 History potassium chloride 20 meq PO QAM 05/30/20 05/30/20 History rosuvastatin 5 mg PO 2XWK 05/30/20 05/30/20 History Past Med/Surg History Medical History Angina pectoris Arteriosclerosis of coronary artery Atopic dermatitis Benign essential hypertension Contact with and (suspected) exposure to other viral communicable diseases Contusion of back Cough GERD without esophagitis Hypercholesterolemia Hypothyroidism Inflamed seborrheic keratosis Left-sided tinnitus Lung nodule Medicare annual wellness visit, subsequent Otalgia, left ear Restless leg syndrome Seborrheic dermatitis Tinnitus, bilateral TMJ tenderness, left Trigeminal neuralgia Vertigo Wheezing Surgical History H/O foot surgery History of cardiac cath History of colonoscopy History of coronary artery stent placement History of hysterectomy History of laminectomy History of salpingo-oophorectomy Family History Daughter Depression Hypertension Polycystic ovarian syndrome Heart murmur Other Adopted Social History Smoking Status: Never smoker Second Hand Exposure: No; Hx Alcohol Use: Yes Alcohol type: beer and wine Alcohol Intake Frequency Comment: 1 drink a week Hx Substance Use: No Preferred Language: Tamazight Communication Ability: Effective Visual Impairment: No Limitations Hearing Ability: Normal 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 current occupational status: retired Other Information That Helps Us Care for You: No Feels Safe at Home: Yes Safety Concerns: Feels Safe At This Time Childhood Exposure to Second-Hand Smoke: Yes caffeine: Yes Dental Care, Regularly: Yes Physical Activity Frequency: 3-4 Times per Week Physical Activity Frequency Comment: walking Seatbelt Use: always Sunscreen Use: Yes Assistive Devices: Walker Review of Systems Review of Systems: All systems reviewed & are unremarkable except as noted in HPI & below Physical Exam Constitutional: + ill appearing Eyes: PERRL, conjunctivae normal, anicteric sclerae ENMT: external ear and nose normal, oropharynx normal Nasal turbinates without erythema or inflammation No pharyngeal erythema or inflammation Respiratory: normal respiratory effort, lungs clear to auscultation Cardiovascular: RRR, no murmur, no edema Gastrointestinal (Abdomen): normal bowel sounds, soft, nontender, no hepatosplenomegaly Skin: no rashes, warm and dry Psychiatric: A+Ox3, euthymic affect Results & Data Results & [facility] ([facility]) Vital Signs (Past 12 Hours) Vital Signs Pulse Pulse Resp BP BP Pulse Ox 05/30/20 22:23 81 18 119/73 98 05/30/20 21:29 84 16 122/72 98 05/30/20 19:55 77 18 95/59 L 93 05/30/20 18:31 94 05/30/20 18:01 94 05/30/20 17:37 87 18 94/63 L 98 Laboratory Results Laboratory Results - last 24 hr 05/30/20 05/30/20 05/30/20 18:42 18:42 18:42 WBC 8.12 RBC 4.42 Hgb 12.6 Hct 37.1 MCV 83.9 MCH 28.5 MCHC 34.0 RDW Std Deviation 41.9 RDW Coeff of Charles 13.7 Plt Count 222 MPV 9.7 Immature Gran % (Auto) 0.7 Neut % (Auto) 79.2 Lymph % (Auto) 11.1 Moca % (Auto) 6.3 Eos % (Auto) 2.3 Baso % (Auto) 0.4 Neut # (Auto) 6.43 Lymph # (Auto) 0.90 L Moca # (Auto) 0.51 Eos # (Auto) 0.19 Baso # (Auto) 0.03 Immature Gran # (Auto) 0.06 H Toxic Vacuolation 1+ PT INR APTT PTT Ratio Sodium Potassium Chloride Carbon Dioxide Anion Gap BUN Creatinine Est Cr Clr Drug Dosing Est GFR ( Amer) Est GFR (Non-Af Amer) BUN/Creatinine Ratio Glucose Lactate Calcium Magnesium Total Bilirubin AST ALT Alkaline Phosphatase Troponin I Total Protein Albumin Globulin Albumin/Globulin Ratio Procalcitonin Anaplasma Smear See Comment A. phagocytophilum DNA Pending Lyme Disease IgG Ab Negative Lyme Disease IgM Ab Negative COVID-19 Eval Order COVID-19 PCR Monoscreen Influ A Molecular Assay Influ B Molecular Assay 05/30/20 05/30/20 05/30/20 18:42 18:42 18:42 WBC RBC Hgb Hct MCV MCH MCHC RDW Std Deviation RDW Coeff of Charles Plt Count MPV Immature Gran % (Auto) Neut % (Auto) Lymph % (Auto) Moca % (Auto) Eos % (Auto) Baso % (Auto) Neut # (Auto) Lymph # (Auto) Moca # (Auto) Eos # (Auto) Baso # (Auto) Immature Gran # (Auto) Toxic Vacuolation PT 11.2 INR 1.1 APTT 27.2 PTT Ratio 1.0 Sodium 134 L Potassium 3.8 Chloride 103 Carbon Dioxide 22 Anion Gap 9.0 BUN 31 H Creatinine 2.10 H Est Cr Clr Drug Dosing Not Reportable Est GFR ( Amer) 27.1 Est GFR (Non-Af Amer) 23.4 BUN/Creatinine Ratio 14.5 Glucose 106 H Lactate 0.8 Calcium 8.8 Magnesium 2.7 H Total Bilirubin 0.5 AST 83 H ALT 145 H Alkaline Phosphatase 303 H Troponin I < 0.015 Total Protein 7.5 Albumin 2.9 L Globulin 4.6 H Albumin/Globulin Ratio 0.6 L Procalcitonin Anaplasma Smear A. phagocytophilum DNA Lyme Disease IgG Ab Lyme Disease IgM Ab COVID-19 Eval Order COVID-19 PCR Monoscreen Influ A Molecular Assay Influ B Molecular Assay 05/30/20 05/30/20 05/30/20 18:42 18:42 18:55 WBC RBC Hgb Hct MCV MCH MCHC RDW Std Deviation RDW Coeff of Charles Plt Count MPV Immature Gran % (Auto) Neut % (Auto) Lymph % (Auto) Moca % (Auto) Eos % (Auto) Baso % (Auto) Neut # (Auto) Lymph # (Auto) Moca # (Auto) Eos # (Auto) Baso # (Auto) Immature Gran # (Auto) Toxic Vacuolation PT INR APTT PTT Ratio Sodium Potassium Chloride Carbon Dioxide Anion Gap BUN Creatinine Est Cr Clr Drug Dosing Est GFR ( Amer) Est GFR (Non-Af Amer) BUN/Creatinine Ratio Glucose Lactate Calcium Magnesium Total Bilirubin AST ALT Alkaline Phosphatase Troponin I Total Protein Albumin Globulin Albumin/Globulin Ratio Procalcitonin 0.66 H Anaplasma Smear A. phagocytophilum DNA Lyme Disease IgG Ab Lyme Disease IgM Ab COVID-19 Eval Order Covid19 Done at [facility] COVID-19 PCR Monoscreen Pending Influ A Molecular Assay Influ B Molecular Assay 05/30/20 05/30/20 18:55 18:55 WBC RBC Hgb Hct MCV MCH MCHC RDW Std Deviation RDW Coeff of Charles Plt Count MPV Immature Gran % (Auto) Neut % (Auto) Lymph % (Auto) Moca % (Auto) Eos % (Auto) Baso % (Auto) Neut # (Auto) Lymph # (Auto) Moca # (Auto) Eos # (Auto) Baso # (Auto) Immature Gran # (Auto) Toxic Vacuolation PT INR APTT PTT Ratio Sodium Potassium Chloride Carbon Dioxide Anion Gap BUN Creatinine Est Cr Clr Drug Dosing Est GFR ( Amer) Est GFR (Non-Af Amer) BUN/Creatinine Ratio Glucose Lactate Calcium Magnesium Total Bilirubin AST ALT Alkaline Phosphatase Troponin I Total Protein Albumin Globulin Albumin/Globulin Ratio Procalcitonin Anaplasma Smear A. phagocytophilum DNA Lyme Disease IgG Ab Lyme Disease IgM Ab COVID-19 Eval Order COVID-19 PCR NEGATIVE Monoscreen Influ A Molecular Assay Negative Influ B Molecular Assay Negative Code Status & VTE Plan Code Status DNI only Supervising Physician Co-Signing Physician Notes Attending addendum: I have physically seen this patient, have supervised the medical residents activities, and agree with the H&P unless as otherwise noted. Assessment and Plan: Generalized weakness/malaise/fevers- Symptoms most consistent with a viral syndrome versus anaplasmosis. COVID-19 testing negative as an outpatient done in the inpatient tonight. Negative influenza A/B, Lyme, anaplasmosis smear and mono screen. Pro-Josias only borderline elevated at 0.66. Acute kidney injury- Creatinine 2.10 upon admission, with baseline range 0.75-0.86. Hold losartan/HCTZ 100/25 mg daily for now. Continue IV fluid rehydration with NSS at 100 mils per hour. Repeat laboratories in a.m. Transaminitis/elevated alk phos- AST 83, ALT 145, alk phos 303 and albumin 2.9 upon admission. Repeat laboratories in a.m., and if still elevated, would look at acute hepatitis panel and imaging. CAD/hypertension- Continue aspirin 81 mg daily and isosorbide mononitrate ER 30 mg daily Hold losartan/HCTZ 100/25 daily as noted above. Hyperlipidemia- Continue rosuvastatin 5 mg daily and Zetia 10 mg daily. Remaining orders and notations as noted Resident Activity Tracking Resident Involvement: Resident Care Provided Care Provided: Adult [facility]
[2020-05-31 00:28] LABS: Appearance Urine Clear (Clear); Bacteria Urine Automated Negative (Negative); Bilirubin Urine Negative (Negative); Blood Urine Negative (Negative); Color Urine Yellow; Epithelial Cell Urine Auto >30 /lpf (0-5); Glucose Urine UA Negative (Negative); Ketones Urine Trace (Negative); Leukocyte Esterase Urine 1+ (Negative); Nitrite Urine Negative (Negative); Protein Urine Trace (Negative); Specific Gravity Urine 1.015 (1.000-1.030); Urobilinogen Urine Negative (Negative)
[2020-05-31] MEDS ORDERED: ONDANSETRON INJ 2 MG/ML 2 ML VIAL IV PRN (00:34)
[2020-05-31] MEDS ORDERED: ALUMINUM/MAGNESIUM SUSP 30 ML UDC PO PRN (00:34)
[2020-05-31] MEDS ORDERED: HYDROCORTISONE 2.5% CR 30 GM TUBE EXT PRN (00:34)
[2020-05-31 01:06] LABS: RBC Urine Automated 0-4 /hpf (0-4)
[2020-05-31] MEDS: carBAMazepine 200 MG TABLET PO SCH ×2 (01:29→20:21)
[2020-05-31] MEDS: ACETAMINOPHEN 325 MG TAB PO PRN ×3 (01:29→20:33)
[2020-05-31] MEDS: LEVOTHYROXINE SODIUM 100 MCG TABLET PO SCH (06:17)
[2020-05-31 06:40] LABS: Basophils # (auto) 0.04 K/uL (0-0.2); Basophils % (auto) 0.8 %; Eosinophils # (auto) 0.13 K/uL (0-0.5); Eosinophils % (auto) 2.5 %; Hematocrit (blood only) 31.7 % (37-47); Hemoglobin 10.4 g/dL (12.0-16.0); Immature Granulocytes # (auto) 0.04 K/uL (0.00-0.02); Immature Granulocytes % (auto) 0.8 %; Lymphocytes # (auto) 0.86 K/uL (1.2-3.4); Lymphocytes % (auto) 16.4 %; Mean Corpuscular Hemoglobin 27.7 pg (25-34); Mean Corpuscular Hgb Conc 32.8 g/dL (32-36); Mean Corpuscular Volume 84.5 fL (80-100); Mean Platelet Volume 9.6 fL (7.4-10.4); Monocytes # (auto) 0.42 K/uL (0.11-0.59); Neutrophils # (auto) 3.74 K/uL (1.4-6.5); Neutrophils % (auto) 71.5 %; Platelet Count 214 K/uL (130-400); RDW Coefficient of Variation 13.7 % (11.5-14.5); RDW Standard Deviation 42.5 fL (36.4-46.3); Red Blood Count 3.75 M/uL (4.2-5.4); White Blood Count 5.23 K/uL (4.8-10.8)
[2020-05-31 07:06] LABS: Albumin Level 2.3 gm/dl (3.4-5.0); BUN Creatinine Ratio 18.2 (10-20); Calcium 8.2 mg/dl (8.5-10.1); Creatinine Clr Calc Pharmacy 35.8 ml/min; Est GFR (African American) 42.1; Est GFR (Non-African American) 36.3; Potassium 3.6 mmol/L (3.5-5.1)
[2020-05-31 07:14] LABS: Albumin Globulin Ratio 0.7 (0.9-2); Bilirubin,Total 0.6 mg/dl (0.2-1); Globulin 3.5 gm/dl (2.5-4.0); Total Protein 5.8 gm/dl (6.4-8.2)
[2020-05-31] MEDS: POTASSIUM CHLORIDE 20 MEQ TABCR PO SCH (09:24)
[2020-05-31] MEDS: guaiFENesin 600 MG TABCR PO SCH ×2 (09:25→20:21)
[2020-05-31] MEDS: PANTOprazole 40 MG TAB PO SCH (09:26)
[2020-05-31] MEDS: ISOSORBIDE MONO EXTENDED REL 30 MG TABCR PO SCH (09:26)
[2020-05-31] MEDS: LOSARTAN/HCTZ 50/12.5MG TAB PO SCH (09:26)
[2020-05-31] MEDS: ASPIRIN 81 MG ECTAB PO SCH (09:26)
--- NOTE | 2020-05-31 10:05 | Electrocardiogram Report ---
Test Reason : Blood Pressure : / mmHG Vent. Rate : 083 BPM Atrial Rate : 083 BPM P-R Int : 136 ms QRS Dur : 076 ms QT Int : 376 ms P-R-T Axes : 016 -17 005 degrees QTc Int : 441 ms Normal sinus rhythm Septal infarct , age undetermined Poor R wave progression, consider anterior RI vs. lead placement vs. LVH Nonspecific T wave abnormality Abnormal ECG When compared with ECG of 12-MAY-2015 19:04, Septal infarct is now Present Nonspecific T wave abnormality now evident in Anterior leads Confirmed by Stevenson Martínez ([id number]) on 05/31/2020 10:04:43 AM Referred By: Randy Amin Confirmed By:Stevenson Martínez
[2020-05-31] MEDS: LACTATED RINGER'S 1,000 ML IV SCH ×2 (11:32→20:22)
--- NOTE | 2020-05-31 14:10 | Magnetic Resonance Report ---
MRI OF THE BRAIN WITHOUT CONTRAST CLINICAL HISTORY: spots in vision, headache COMPARISON STUDY: None. FINDINGS: Sagittal T1, axial diffusion, proton density and T2 weighted axial, coronal FLAIR, and axial T1-weigh elaine images were acquired. No intra or extra-axial mass lesions are visualized Axial diffusion-weighted images reveal no evidence of acute or subacute infarction. There is no evidence of ventricular dilatation. Proton density T2-weighted and FLAIR images reveal scattered foci of increased T2 signal within the w jonatan matter, likely on a small vessel basis. There are no abnormal flow voids. IMPRESSION: 1. No acute intracranial findings 2. No evidence of intracranial mass 3. No evidence of acute or subacute infarction 4. Scattered foci of increased T2 and FLAIR signal within the white matter. While nonspecific given t he patient's age these are likely on a small vessel basis. ACT 112: Negative or not required by law. Electronically signed by: Lex Miller M.D. 05/31/2020 2:08 PM
[2020-05-31] MEDS: cefTRIAXone SODIUM 2,000 MG in DEXTROSE 5% 50 ML IV SCH (14:35)
--- NOTE | 2020-05-31 14:43 | Hospitalist Progress Note ---
Date of Service May 31, 2020 Assessment & Plan (1) Weakness: Unclear etiology, possibly viral COVID 19 negative x2, influenza A/B negative, Lyme negative, anaplasmosis smear negative, monoscreen negative, anaplasma dna pending EBV pending. Parasite smear for babesiosis negative - haptoglobin and ldl pending pro-Josias 0.66 not overly impressive, BC pending Initiate doxycycline and ceftriaxone - will cover for tick born illnesses given presentation despite Lyme negative and anaplasma smear negative Consult infectious disease MRI for complaints of intermittent spots in vision and headache - no acute findings (2) Acute kidney injury: Creatinine 2.1 on admission, now trending down LR @ 100 mls/hr Hold HCTZ/losartan Daily BMP (3) CAD (coronary artery disease): CAD/HLD/HTN Continue aspirin 81 mg, hold losartan/HCTZ 100/25 mg for ARELIS, continue rosuvastatin 5 mg as directed, Zetia 10 mg, isosorbide mononitrate ER 30 mg (4) Transaminitis: AST 83, ALT 145 on admission. No history of such. Secondary to viral illness vs tick borne illness? CT abdomen pelvis showing no acute infectious or inflammatory findings in the abdomen LFTs trending down. CK panel pending (5) GERD without esophagitis: continue ppi (6) Hypothyroidism: TSH WNL 0.452 May 2020 Continue levothyroxine 100 mcg (7) DVT prophylaxis: heparin subq, scds Admission and Anticipated Discharge Date Admission Date: May 30, 2020 Subjective Ms. Claudio reports feeling generally unwell. She has a mild cough that is non productive. Headache that starts in the back of her head and at times shoots down the back of her neck. No neck stiffness. She reports seeing spots in her vision that come and go bilaterally that are multiple colors but mostly black and red which have been a symptoms since she initially became sick ten days ago. She does not think she has had a fever since . No nausea or vomiting or changes in bowels although she does not have any appetite. ROS Constitutional: no chills, aches, sweats or fever Respiratory: no sob,cough, sputum, or wheezing Cardiac: no chest pain, palpitations, edema, orthopnea or lightheadedness GI: no abdominal pain, nausea, vomiting, diarrhea or constipation : no dysuria or hesitancy Extremities: no joint pain or weakness Skin: no rash All other systems reviewed and negative Physical Exam Physical Exam: General: no distress Eyes: normal inspection, PERLL Respiratory: chest non tender, clear to auscultation, normal breath sounds, no respiratory distress, no accessory muscle use Cardiac: regular rate and rhythm, no rub or gallop, no murmur, no edema, no jvd GI/: active bowel sounds, no abd pain or tenderness, soft, non distended Extremities: normal range of motion, normal strength, non tender Neuro/Psych: alert and oriented x 3, normal mood and affect Skin: normal color, dry Results & Data Results & Data ([facility]) Vital Signs (Past 12 Hours) Vital Signs Temp Pulse Resp BP Pulse Ox 05/31/20 06:47 36.6 C 75 19 115/75 96 PG Care Time/CCT Total # of Minutes Spent Total Time Spent with Patient: Total time spent is greater than 50% in coordination of care (as documented) at patient's floor/unit and/or counseling patient: Coding Level of Care Code 60448 Subseq Hosp Care Lvl 3 Diagnoses Weakness R53.1 Acute kidney injury N17.9 CAD (coronary artery disease) I25.10 Transaminitis R74.01 GERD without esophagitis K21.9 Hypothyroidism E03.9 DVT prophylaxis Z29.9
[2020-05-31] MEDS: DOXYCYCLINE HYCLATE 100 MG in DEXTROSE 5% 100 ML IV SCH (16:47)
[2020-05-31] MEDS: EZETIMIBE 10 MG TABLET PO SCH (20:21)
[2020-05-31] MEDS: POTASSIUM CHLORIDE 10 MEQ TABCR PO SCH (20:21)
[2020-05-31] MEDS: HEPARIN SOD 5,000 UNIT/0.5 ML VIAL SQ SCH (20:34)
--- NOTE | 2020-05-31 21:01 | Billing Data ---
Date of Service May 31, 2020 Coding Level of Care Code 80379 OBS Care - Level 3
[2020-06-01] MEDS: DOXYCYCLINE HYCLATE 100 MG in DEXTROSE 5% 100 ML IV SCH ×2 (01:15→13:37)
[2020-06-01] MEDS: LACTATED RINGER'S 1,000 ML IV SCH (01:15)
[2020-06-01] MEDS: LEVOTHYROXINE SODIUM 100 MCG TABLET PO SCH (06:43)
[2020-06-01 07:12] LABS: Basophils # (auto) 0.04 K/uL (0-0.2); Basophils % (auto) 0.9 %; Eosinophils # (auto) 0.11 K/uL (0-0.5); Eosinophils % (auto) 2.4 %; Hematocrit (blood only) 32.9 % (37-47); Hemoglobin 10.9 g/dL (12.0-16.0); Immature Granulocytes # (auto) 0.03 K/uL (0.00-0.02); Immature Granulocytes % (auto) 0.6 %; Lymphocytes % (auto) 19.3 %; Mean Corpuscular Hgb Conc 33.1 g/dL (32-36); Mean Corpuscular Volume 84.6 fL (80-100); Mean Platelet Volume 9.3 fL (7.4-10.4); Monocytes # (auto) 0.51 K/uL (0.11-0.59); Monocytes % (auto) 10.9 %; Neutrophils # (auto) 3.08 K/uL (1.4-6.5); Neutrophils % (auto) 65.9 %; Platelet Count 264 K/uL (130-400); RDW Coefficient of Variation 13.8 % (11.5-14.5); RDW Standard Deviation 42.8 fL (36.4-46.3); Red Blood Count 3.89 M/uL (4.2-5.4); White Blood Count 4.67 K/uL (4.8-10.8)
[2020-06-01 07:57] LABS: Albumin Globulin Ratio 0.7 (0.9-2); Albumin Level 2.4 gm/dl (3.4-5.0); BUN Creatinine Ratio 15.1 (10-20); Bilirubin,Total 0.5 mg/dl (0.2-1); Calcium 8.8 mg/dl (8.5-10.1); Est GFR (Non-African American) 51.8; Globulin 3.6 gm/dl (2.5-4.0); Potassium 3.7 mmol/L (3.5-5.1)
[2020-06-01] MEDS ORDERED: ROSUVASTATIN CALCIUM 5 MG TAB PO SCH (09:00)
[2020-06-01] MEDS: guaiFENesin 600 MG TABCR PO SCH ×2 (09:14→21:25)
[2020-06-01] MEDS: ASPIRIN 81 MG ECTAB PO SCH (09:14)
[2020-06-01] MEDS: PANTOprazole 40 MG TAB PO SCH (09:15)
[2020-06-01] MEDS: POTASSIUM CHLORIDE 20 MEQ TABCR PO SCH (09:15)
[2020-06-01] MEDS: ISOSORBIDE MONO EXTENDED REL 30 MG TABCR PO SCH (09:15)
[2020-06-01] MEDS: HEPARIN SOD 5,000 UNIT/0.5 ML VIAL SQ SCH ×2 (09:16→21:21)
--- NOTE | 2020-06-01 12:20 | Hospitalist Progress Note ---
Date of Service June 01, 2020 Assessment & Plan (1) Weakness: Unclear etiology, possibly viral vs tick born illness COVID 19 negative x2, influenza A/B negative, Lyme negative, anaplasmosis smear negative, monoscreen negative, anaplasma dna pending EBV pending. Parasite smear for babesiosis negative - haptoglobin and ldl pending pro-Josias 0.66 not overly impressive, BC pending Initiate doxycycline and ceftriaxone - will cover for tick born illnesses given presentation despite Lyme negative and anaplasma smear negative Consult infectious disease MRI for complaints of intermittent spots in vision and headache - no acute findings (2) Acute kidney injury: Creatinine 2.1 on admission, now wnl DC IVF, patient taking po Resume HCTZ/losartan Daily BMP (3) CAD (coronary artery disease): CAD/HLD/HTN Continue aspirin 81 mg, losartan/HCTZ 100/25 mg for ARELIS, rosuvastatin 5 mg as directed, Zetia 10 mg, isosorbide mononitrate ER 30 mg (4) Transaminitis: AST 83, ALT 145 on admission. No history of such. Secondary to viral illness vs tick borne illness? CT abdomen pelvis showing no acute infectious or inflammatory findings in the abdomen LFTs trending down. CK wnl (5) GERD without esophagitis: continue ppi (6) Hypothyroidism: TSH WNL 0.452 May 2020 Continue levothyroxine 100 mcg (7) DVT prophylaxis: heparin subq bid, scds Admission and Anticipated Discharge Date Admission Date: June 01, 2020 Subjective Ms. Claudio is feeling better today, less weak. No fevers this admission. Still with a mild cough. Headache has improved. ROS Constitutional: no chills, aches, sweats or fever Respiratory: no sob, Cardiac: no chest pain, palpitations, edema, orthopnea or lightheadedness GI: no abdominal pain, nausea, vomiting, diarrhea or constipation : no dysuria or hesitancy Extremities: no joint pain or weakness Skin: no rash All other systems reviewed and negative Physical Exam Physical Exam: General: no distress Eyes: normal inspection, PERLL Respiratory: chest non tender, clear to auscultation, normal breath sounds, no respiratory distress, no accessory muscle use Cardiac: regular rate and rhythm, no rub or gallop, no murmur, no edema, no jvd GI/: active bowel sounds, no abd pain or tenderness, soft, non distended Extremities: normal range of motion, normal strength, non tender Neuro/Psych: alert and oriented x 3, normal mood and affect Skin: normal color, dry Results & Data Results & Data ([facility]) Vital Signs (Past 12 Hours) Vital Signs Temp Pulse Resp BP Pulse Ox 06/01/20 07:45 36.8 C 83 17 127/78 93 PG Care Time/CCT Total # of Minutes Spent Total Time Spent with Patient: Total time spent is greater than 50% in coordination of care (as documented) at patient's floor/unit and/or counseling patient: Coding Level of Care Code 51764 Subseq Hosp Care Lvl 3 Diagnoses Weakness R53.1 Acute kidney injury N17.9 CAD (coronary artery disease) I25.10 Transaminitis R74.01 GERD without esophagitis K21.9 Hypothyroidism E03.9 DVT prophylaxis Z29.9
[2020-06-01] MEDS: cefTRIAXone SODIUM 2,000 MG in DEXTROSE 5% 50 ML IV SCH (12:33)
[2020-06-01] MEDS: ACETAMINOPHEN 500 MG TAB PO PRN (15:49)
[2020-06-01] MEDS: POTASSIUM CHLORIDE 10 MEQ TABCR PO SCH (21:25)
[2020-06-01] MEDS: EZETIMIBE 10 MG TABLET PO SCH (21:25)
[2020-06-01] MEDS: carBAMazepine 200 MG TABLET PO SCH (21:25)
[2020-06-02] MEDS: DOXYCYCLINE HYCLATE 100 MG in DEXTROSE 5% 100 ML IV SCH ×2 (01:40→13:20)
[2020-06-02] MEDS: ACETAMINOPHEN 500 MG TAB PO PRN ×2 (05:57→15:43)
[2020-06-02] MEDS: LEVOTHYROXINE SODIUM 100 MCG TABLET PO SCH (05:57)
[2020-06-02] MEDS: PANTOprazole 40 MG TAB PO SCH (08:02)
[2020-06-02] MEDS: POTASSIUM CHLORIDE 20 MEQ TABCR PO SCH (08:02)
[2020-06-02] MEDS: LOSARTAN/HCTZ 50/12.5MG TAB PO SCH (08:02)
[2020-06-02] MEDS: ISOSORBIDE MONO EXTENDED REL 30 MG TABCR PO SCH (08:02)
[2020-06-02] MEDS: ASPIRIN 81 MG ECTAB PO SCH (08:02)
[2020-06-02] MEDS: HEPARIN SOD 5,000 UNIT/0.5 ML VIAL SQ SCH (08:03)
[2020-06-02] MEDS: guaiFENesin 600 MG TABCR PO SCH (08:03)
[2020-06-02 09:15] LABS: Basophils # (auto) 0.04 K/uL (0-0.2); Basophils % (auto) 0.9 %; Eosinophils # (auto) 0.09 K/uL (0-0.5); Eosinophils % (auto) 2.1 %; Immature Granulocytes # (auto) 0.05 K/uL (0.00-0.02); Immature Granulocytes % (auto) 1.2 %; Lymphocytes # (auto) 1.03 K/uL (1.2-3.4); Lymphocytes % (auto) 23.7 %; Mean Corpuscular Hemoglobin 27.4 pg (25-34); Mean Corpuscular Hgb Conc 32.4 g/dL (32-36); Mean Corpuscular Volume 84.8 fL (80-100); Mean Platelet Volume 9.2 fL (7.4-10.4); Monocytes # (auto) 0.57 K/uL (0.11-0.59); Monocytes % (auto) 13.1 %; Neutrophils # (auto) 2.56 K/uL (1.4-6.5); Platelet Count 288 K/uL (130-400); RDW Coefficient of Variation 13.6 % (11.5-14.5); RDW Standard Deviation 42.4 fL (36.4-46.3); Red Blood Count 4.01 M/uL (4.2-5.4); White Blood Count 4.34 K/uL (4.8-10.8)
[2020-06-02 09:32] LABS: Albumin Level 2.4 gm/dl (3.4-5.0); BUN Creatinine Ratio 10.8 (10-20); Bilirubin Direct 0.2 mg/dl (0-0.2); Calcium 9.1 mg/dl (8.5-10.1); Creatinine Clr Calc Pharmacy 49.3 ml/min; Est GFR (Non-African American) 53.5
[2020-06-02 09:35] LABS: Bilirubin,Total 0.6 mg/dl (0.2-1); Total Protein 6.1 gm/dl (6.4-8.2)
--- NOTE | 2020-06-02 09:45 | Hospitalist Progress Note ---
Date of Service June 02, 2020 Assessment & Plan (1) Weakness: * Unclear etiology, possibly viral vs tick born illness * COVID negative x 2 * Influenza A/B negative * Lyme negative * Anaplasmosis smear negative --> PCR pending * Monoscreen negative * EBV suggestive of previous EBV infection * Parasite smear for babesiosis negative - haptoglobin and ldl pending * ID consulted -- rec continuing only doxy and d/c if PCR negative. more likely viral. no need to run biofire at this time as course would be unchanged * D/C Rocephin * PT/OT consulted (2) Acute kidney injury: * Creatinine 2.1 on admission * Cr improved to 1.06 * IVF discontinued * Resumed HCTZ/losartan * Monitor am labs (3) CAD (coronary artery disease): CAD/HLD/HTN * Continue aspirin 81 mg, losartan/HCTZ 100/25 mg, rosuvastatin 5 mg as directed, Zetia 10 mg, isosorbide mononitrate ER 30 mg (4) Transaminitis: * Elevated on admission -- AST 83, ALT 145, Alk phos 313 * No history of such. * Secondary to viral illness vs tick borne illness? * CT abdomen pelvis showing no acute infectious or inflammatory findings in the abdomen * LFTs trending down -- AST 48, ALT 96, Alk phos 227. CK wnl * Continue to monitor on AM labs (5) GERD without esophagitis: * Continue protonix (6) Hypothyroidism: * TSH WNL 0.452 May 2020 * Continue levothyroxine 100 mcg (7) DVT prophylaxis: * SCDs * Heparin subq bid Dispo: hopeful discharge in AM Admission and Anticipated Discharge Date Admission Date: June 01, 2020 Supervising Physician Co-Signing Physician Notes PA Supervision Note: I personally saw and examined the patient. I verified all cross points and agree with JAME Huggins with the following exceptions and/or additions: See discharge summary same DOS Subjective Patient evaluated this morning. Feeling better today but still weak. States with similar symptoms already feeling better. Alot of emotional/stressors currently. Family member last week and she was unable to say goodbye to her as she was sick and not able to visit. had nephrectomy a month ago. He is home taking care of 93 year old parent while he isn't feeling the best either. Denies any further fevers but admits she did have one up to 103.9F prior to admission. Denies chest pain, shortness of breath, abdominal pain, nausea. Did have loose stool x 3 yesterday and once today but no change in color/odor. Discussed to alert nursing if this changes. Hopeful for discharge tomorrow with possibility of continued doxy PO until PCR resulted. ID consultation today with suggestion of viral illness but futile to order at this point given improvement. Review of Systems Review of Systems: All systems reviewed & are unremarkable except as noted in HPI & below Physical Exam 2 Constitutional: WD/WN, vitals as above no acute distress ENMT: mmm Neck: normal visual inspection Respiratory: normal respiratory effort, lungs clear to auscultation Cardiovascular: RRR, no murmur, no edema Gastrointestinal (Abdomen): normal bowel sounds, soft, nontender, no hepatosplenomegaly Musculoskeletal: no cyanosis or clubbing, extremities motor strength 5/5 Skin: warm, dry Neurologic: PERRL, EOMI, accommodation nl, no face palsy, no dysarthria Psychiatric: Orientation: alert and oriented x 3 Affect: + tearful affect Lymphatic: no cervical or axillary lymphadenopathy Results & Data Results & Data ([facility]) Vital Signs (Past 12 Hours) Vital Signs Temp Pulse Resp BP Pulse Ox 06/02/20 07:17 36.9 C 75 16 120/74 93 06/01/20 23:37 36.9 C 77 16 115/72 96 Laboratory Results 06/02/20 06/02/20 Range/Units 09:03 09:03 WBC 4.34 L (4.8-10.8) K/uL RBC 4.01 L (4.2-5.4) M/uL Hgb 11.0 L (12.0-16.0) g/dL Hct 34.0 L (37-47) % MCV 84.8 (80-100) fL MCH 27.4 (25-34) pg MCHC 32.4 (32-36) g/dL RDW Std Deviation 42.4 (36.4-46.3) fL RDW Coeff of Charles 13.6 (11.5-14.5) % Plt Count 288 (130-400) K/uL MPV 9.2 (7.4-10.4) fL Immature Gran % (Auto) 1.2 % Neut % (Auto) 59.0 % Lymph % (Auto) 23.7 % [place] % (Auto) 13.1 % Eos % (Auto) 2.1 % Baso % (Auto) 0.9 % Neut # (Auto) 2.56 (1.4-6.5) K/uL Lymph # (Auto) 1.03 L (1.2-3.4) K/uL [place] # (Auto) 0.57 (0.11-0.59) K/uL Eos # (Auto) 0.09 (0-0.5) K/uL Baso # (Auto) 0.04 (0-0.2) K/uL Immature Gran # (Auto) 0.05 H (0.00-0.02) K/uL Sodium 138 (136-145) mmol/L Potassium 4.0 (3.5-5.1) mmol/L Chloride 108 H (98-107) mmol/L Carbon Dioxide 23 (21-32) mmol/L Anion Gap 8.0 (3-11) BUN 11 (7-18) mg/dl Creatinine 1.06 (0.6-1.2) mg/dl Est Cr Clr Drug Dosing 49.3 ml/min Est GFR ( Amer) 62.0 Est GFR (Non-Af Amer) 53.5 BUN/Creatinine Ratio 10.8 (10-20) Glucose 101 H (70-99) mg/dl Calcium 9.1 (8.5-10.1) mg/dl Total Bilirubin 0.6 (0.2-1) mg/dl Direct Bilirubin 0.2 (0-0.2) mg/dl AST 48 H (15-37) U/L ALT 96 H (12-78) U/L Alkaline Phosphatase 227 H (45-117) U/L Total Protein 6.1 L (6.4-8.2) gm/dl Albumin 2.4 L (3.4-5.0) gm/dl PG Care Time/CCT Total # of Minutes Spent Total Time Spent with Patient: Total time spent is greater than 50% in coordination of care (as documented) at patient's floor/unit and/or counseling patient: Coding Level of Care Code None Diagnoses Weakness R53.1 Acute kidney injury N17.9 CAD (coronary artery disease) I25.10 Transaminitis R74.01 GERD without esophagitis K21.9 Hypothyroidism E03.9 DVT prophylaxis Z29.9
[2020-06-02] MEDS: cefTRIAXone SODIUM 2,000 MG in DEXTROSE 5% 50 ML IV SCH (13:20)
--- NOTE | 2020-06-02 18:05 | Discharge Summary ---
Date of Service June 02, 2020 Admission HPI Per Admitting Provider 69-year-old female with past medical history coronary artery disease, hypothyroidism, hyperlipidemia, hypertension, restless leg syndrome, GERD presents with concerns of sick symptoms that have been going on for 8 to 9 days. Patient has complaints of fevers as high as 103.9, malaise, dry cough, chills, sweats, headache, decreased appetite with an increased sense of taste, just overall severe generalized weakness. Patient notes that she has never had symptoms this severe ever before. Patient was seen by her PCP May 26, 2020 subsequently again today for these symptoms. Patient notes that PCP order COVID testing and a chest x-ray, which were both reportedly negative. Patient has tried guaifenesin and alternating Tylenol/ibuprofen, which has helped symptoms a little. Patient otherwise denies any vomiting, diarrhea, shortness of breath, chest pain, rhinorrhea, nasal congestion, urinary symptoms, recent travel anywhere. Patient notes she has a sick contact of her who was sick with similar symptoms starting around the same time, however he has since been resolved. Patient also knows that she received flu shot about 2 weeks ago. Patient with no other acute concerns or complaints. Pertinent labs: Sodium 134, BUN 31, creatinine 2.10, mag 2.7, AST 83, ALT 145, alk phos 303, albumin 2.9, pro-Josias 0.66. COVID 19 again negative, influenza A/B negative, Lyme negative, anaplasmosis smear negative Abdomen pelvis CT: There are no acute infectious or inflammatory findings in the abdomen or pelvis. Advanced colonic diverticulosis without CT evidence of acute diverticulitis. Trace pleural effusions. Advanced coronary artery calcification. ER course: NSS 2 L Admission Exam Per Admitting Provider Constitutional: + ill appearing Eyes: PERRL, conjunctivae normal, anicteric sclerae ENMT: external ear and nose normal, oropharynx normal Nasal turbinates without erythema or inflammation No pharyngeal erythema or inflammation Respiratory: normal respiratory effort, lungs clear to auscultation Cardiovascular: RRR, no murmur, no edema Gastrointestinal (Abdomen): normal bowel sounds, soft, nontender, no hepatosplenomegaly Skin: no rashes, warm and dry Psychiatric: A+Ox3, euthymic affect Principal Diagnosis Acute Kidney Injury, Possible Tick-Bourne Illness vs Viral Discharge Exam Constitutional WD/WN, vitals as above no acute distress Eyes + anicteric sclerae and PERRL ENMT external ear and nose normal, oropharynx normal Neck normal visual inspection Respiratory normal respiratory effort, lungs clear to auscultation Cardiovascular RRR, no murmur, no edema Gastrointestinal (Abdomen) normal bowel sounds, soft, nontender, no hepatosplenomegaly Musculoskeletal no cyanosis or clubbing, extremities motor strength 5/5 Neurologic PERRL, EOMI, accommodation nl, no face palsy, no dysarthria Psychiatric Orientation: alert and oriented x 3 Affect: + tearful affect Lymphatic no cervical or axillary lymphadenopathy Discharge Data Allergies Allergy/AdvReac Type Severity Reaction Status Date / Time milk Allergy Unknown unknown Verified 05/30/20 15:51 doxycycline Allergy Verified 06/06/20 11:25 lisinopril AdvReac Mild cough Verified 05/30/20 15:51 metoprolol AdvReac Mild cough Verified 05/30/20 15:51 prednisone AdvReac Unknown depression Verified 05/30/20 15:51 Consultations 05/30/20 21:04 ED Decision to Admit Stat 05/31/20 12:18 Consult Infectious Diseases Routine Ordered Studies 05/30/20 20:46 CT abd pelvis wo con Stat 05/31/20 12:12 MR brain wo con Stat Hospital Course (1) Weakness: Unclear etiology, possibly viral vs tick born illness although likely viral given with similar symptoms and already improved. COVID negative x 2 Influenza A/B negative Lyme negative Anaplasmosis smear negative --> PCR pending at discharge but also negative Monoscreen negative EBV suggestive of previous EBV infection Parasite smear for babesiosis negative - haptoglobin and ldl pending ID consulted -- rec continuing only doxy and d/c if PCR negative (pending at d/c). more likely viral. no need to run biofire at this time as course would be unchanged (2) Acute kidney injury: Creatinine 2.1 on admission. Given IVF and Cr improved to baseline Resumed HCTZ/losartan Given labs for repeat check on Cr and LFTs (3) CAD (coronary artery disease): CAD/HLD/HTN Continued aspirin 81 mg, losartan/HCTZ 100/25 mg, rosuvastatin 5 mg as directed, Zetia 10 mg, isosorbide mononitrate ER 30 mg (4) Transaminitis: Elevated on admission -- AST 83, ALT 145, Alk phos 313 Secondary to viral illness vs tick borne illness? as PCR pending for anaplasmosis CT abdomen pelvis showing no acute infectious or inflammatory findings in the abdomen LFTs trending down -- AST 48, ALT 96, Alk phos 227. CK wnl Repeat LFTs outpatient- slip provided (5) GERD without esophagitis: Continued protonix (6) Hypothyroidism: TSH WNL 0.452 May 2020 Continued levothyroxine 100 mcg (7) DVT prophylaxis: SCDs Heparin subq bid while inpatient Discharged home. FOllowed up with PCP. Unable to tolerate doxy and self discontinued Total Time Total Time Spent Total Time Spent (In Minutes): 60 Discharge Plan Discharge Items Patient Disposition: Home - Self-Care Reason For Visit: ARELIS, FEVERS Discharge Diagnosis: Acute Kidney Injury, Possible Anaplasmosis vs Viral Condition on Discharge: Good Goals: You have been hospitalized for an acute medical problem. During your stay at [facility], we have made an effort to correct the problem that brought you to the hospital while keeping you as comfortable as possible. Medications were used to bring your condition under control and your discharge instructions will include directions for any medications you should take after leaving the hospital. Please make sure you see your Primary Care Provider as part of your follow up plan. Activity: Resume your previous activity Non-emergency contact: Primary Care Provider Call non-emergency contact if: you have any medication questions, your symptoms worsen and your pain is concerning for you Follow-up/Referrals: Randy Amin MD [Primary Care Provider] - Diet: Heart Healthy Addtl Attending Provider Instructions: You have been hospitalized and found to have an acute kidney injury and likely a viral illness, although there are concerns for anaplasmosis as discussed. You were evaluated by infectious disease and they also would continue the dox ycycline until the PCR testing is resulted. If negative, we can stop this medication and I will call you with those results. Your liver function tested were elevated, which can happen with anaplasmosis, but these are trending back down. You were given IV fluids and your kidney function has come back down to normal. You have been provided lab slips to repeat these values to ensure resolution. Please follow up with your primary care provider in the next week to monitor your progress. Please return to the emergency department with any worsening pain, fever, inability to keep oral intake down or for any other symptoms that are concerning for you. It has been a pleasure being a part of the medical team providing for you while you have been in the hospital. Take care! Pending Studies at Discharge: Yes Studies:: Blood Cultures -- preliminary no growth to date Anaplasmosis PCR Stand-Alone Forms: My [facility] Medications and DC Order Prescriptions: Continued isosorbide mononitrate 30 mg tablet extended release 24 hr 30 mg PO DAILY Qty: 90 RF: 3 levothyroxine 100 mcg tablet 100 mcg PO DAILY Qty: 90 RF: 3 losartan-hydrochlorothiazide 100-25 mg tablet 1 tab PO DAILY Qty: 90 RF: 3 nitroglycerin 0.4 mg tablet, sublingual 0.4 mg SL Q5M Qty: 25 RF: 0 omeprazole 20 mg capsule,delayed release(DR/EC) 20 mg PO DAILY Qty: 90 RF: 3 aspirin 81 mg tablet 81 mg PO DAILY RF: 0 hydrocortisone 2.5 % cream 1 appln TOP BID PRN (Reason: skin irritation) Qty: 30 RF: 11 No Action potassium chloride 10 mEq tablet extended release 10 meq PO .COMPLEX RF: 0 acetaminophen [Tylenol Extra Strength] 500 mg tablet 1,000 mg PO Q8 PRN (Reason: Pain) Qty: 60 RF: 0 Discharge Orders: Discharge Order (Routine); Ordered 06/02/20 Ordered By: Dee Huggins Admission Data Admit Date/Time: 06/01/20 08:09 Attending Provider: Swati Mc Admit Provider: Keny Beltre Primary Care Provider: Randy Amin Other Providers: Levi Dorsey ; Claudio Mcconnell ; Blanca Sharma ; Lokesh Barnes I. ; Caleb Mccormick II ; Lamar Simmons ; Romie Frank Other Interventions: Discharge Summary Assessment (RN) Last Done: 06/02/20 18:43 Coding Level of Care Code D/C Day Management >30 mins Diagnoses Weakness R53.1 Acute kidney injury N17.9 CAD (coronary artery disease) I25.10 Transaminitis R74.01 GERD without esophagitis K21.9 Hypothyroidism E03.9 DVT prophylaxis Z29.9
[2020-06-02] MEDS ORDERED: DOXYCYCLINE HOME PACK 100 MG/CAP PO ONE (18:15)
[2020-06-02] MEDS ORDERED: DOXYCYCLINE HYCLATE 100 MG CAP PO SCH ×3 (19:15→21:00)
[2020-06-05 05:02] LABS: CK Total 41 U/L (29-143); CK-MB 0 % (<5); CK-MM 100 % (95-100)
== END 2020-06-02 19:31 | disposition home or self-care (01) | DRG 866 ==
LOC: ED 17:23 → 3N 17:23 → SUATTDRO 23:33 → 3N 05-31 00:15 → SUATTDRO 06-01 08:09